=== PATIENT | male | born 1940 | race Caucasian/White ===

== ENCOUNTER 2017-12-30 10:35 | Observation (INO) | payer MEDICARE ==
[2017-12-30] VITALS (11 sets, daily range): BP systolic 137–235; BP diastolic 65–102; PULSE 61–70; RESP 16–20; TEMP 97–97.7; O2SAT 95–100
[~2017-12-30] VITALS: Ht 175.3 cm; Wt 70.7 kg
[2017-12-30] MEDS ORDERED: ASPI1TAB57 PO (10:49)
[2017-12-30] MEDS ORDERED: LIVA2TAB PO (10:49)
[2017-12-30] MEDS ORDERED: MULT-65 PO (10:49)
[2017-12-30] MEDS ORDERED: GLIP5TAB8 PO (10:49)
[2017-12-30] MEDS ORDERED: FIBE625T10 PO (10:49)
[2017-12-30] MEDS ORDERED: MIRA3350 PO (10:49)
[2017-12-30] MEDS ORDERED: FISHCAP4 PO (10:49)
[2017-12-30] MEDS ORDERED: PLAV75TA29 PO (10:49)
[2017-12-30] MEDS ORDERED: QUIN5TAB6 PO (10:49)
--- NOTE | 2017-12-30 10:50 | PD ---
HPI Chief Complaint: Syncope/Near-Syncope Time Seen by Provider: 10:38 Travel History International Travel<30 days: No Contact w/Intl Traveler<30days: No Traveled to known affect area: No History of Present Illness HPI 77-year-old male presents after having a near syncopal event today. He states he got lightheaded and felt tingly all over like he was going to pass out but did not lose consciousness. He denies any chest pain, shortness of breath or other concurrent complaints. He states that he is visiting from [place]. He denies prior history of this. He states his last heart workup was about a year ago. He denies specific modifying factors. He presents by ambulance. PFS Past Medical History Hx Anticoagulant Therapy: Yes Cardiovascular Problems: Yes Diabetes: Yes Past Surgical History Narrative Surgical Cardiac stent, carotid endarterectomy Social History Alcohol Use: No Tobacco Use: No Substance Use: No Allergies-Medications (Allergen,Severity, Reaction): Coded Allergies: No Known Allergies (Unverified , 12/30/17) Reported Meds & Prescriptions Reported Meds & Active Scripts Active Reported Fiber Tabs (Calcium Polycarbophil) 625 Mg Tab 625 Mg PO PRN Miralax Powder (Polyethylene Glycol 3350 Powder) 17 Gm Powd 17 Gm PO WEEKLY Mix and dissolve one measuring cap-ful (17 grams) in water or juice. Multi-Vitamin Daily (Multiple Vitamin) 1 Tab Tab 1 Tab PO DAILY Fish Oil + D3 (Fish Oil-Cholecalciferol) 1,200-1,000 Mg-Unit Cap 1 Cap PO DAILY Aspirin 81 (Aspirin) 81 Mg Tabdr 81 Mg PO DAILY Livalo (Pitavastatin) 2 Mg Tab 2 Mg PO DAILY Quinapril (Quinapril HCl) 5 Mg Tab 10 Mg PO DAILY Plavix (Clopidogrel Bisulfate) 75 Mg Tab 75 Mg PO DAILY Glipizide 5 Mg Tab 5 Mg PO DAILY Take 30 minutes before a meal Review of Systems Except as stated in HPI: all other systems reviewed are Neg Physical Exam Narrative GENERAL: 77-year-old male in no apparent distress SKIN: Focused skin assessment warm/dry. HEAD: Atraumatic. Normocephalic. EYES: Pupils equal and round. No scleral icterus. No injection or drainage. ENT: No nasal bleeding or discharge. Mucous membranes pink and moist. NECK: Trachea midline. No JVD. CARDIOVASCULAR: Irregular rhythm with normal rate. No murmur appreciated. RESPIRATORY: No accessory muscle use. Clear to auscultation. Breath sounds equal bilaterally. GASTROINTESTINAL: Abdomen soft, non-tender, nondistended. Hepatic and splenic margins not palpable. MUSCULOSKELETAL: No obvious deformities. No clubbing. No cyanosis. No edema. NEUROLOGICAL: Awake and alert. No obvious cranial nerve deficits. Motor grossly within normal limits. Normal speech. PSYCHIATRIC: Appropriate mood and affect; insight and judgment normal. Data Data Last Documented VS Vital Signs Date Time Temp Pulse Resp B/P (MAP) Pulse Ox O2 Delivery O2 Flow Rate FiO2 12/30/17 12:08 64 16 200/92 (128) 100 Room Air 12/30/17 10:41 97.6 Orders Orders Electrocardiogram (12/30/17 10:46) B-Type Natriuretic Peptide (12/30/17 10:46) Ckmb (Isoenzyme) Profile (12/30/17 10:46) Complete Blood Count With Diff (12/30/17 10:46) Comprehensive Metabolic Panel (12/30/17 10:46) Magnesium (Mg) (12/30/17 10:46) Prothrombin Time / Inr (Pt) (12/30/17 10:46) Act Partial Throm Time (Ptt) (12/30/17 10:46) Troponin I (12/30/17 10:46) Chest, Single Ap (12/30/17 10:46) Ecg Monitoring (12/30/17 10:46) Bilateral Bp Monitoring (12/30/17 10:46) Iv Access Insert/Monitor (12/30/17 10:46) Oximetry (12/30/17 10:46) Sodium Chloride 0.9% Flush (Ns Flush) (12/30/17 11:00) CKMB (12/30/17 10:50) CKMB% (12/30/17 10:50) Admit Order (Ed Use Only) (12/30/17 12:24) Labs Laboratory Tests Test 12/30/17 10:46 12/30/17 10:50 B-Type Natriuretic Peptide 97 PG/ML White Blood Count 3.6 TH/MM3 Red Blood Count 4.08 MIL/MM3 Hemoglobin 13.9 GM/DL Hematocrit 41.7 % Mean Corpuscular Volume 102.3 FL Mean Corpuscular Hemoglobin 34.1 PG Mean Corpuscular Hemoglobin Concent 33.4 % Red Cell Distribution Width 12.6 % Platelet Count 148 TH/MM3 Mean Platelet Volume 9.8 FL Neutrophils (%) (Auto) 70.5 % Lymphocytes (%) (Auto) 16.9 % Monocytes (%) (Auto) 10.1 % Eosinophils (%) (Auto) 1.7 % Basophils (%) (Auto) 0.8 % Neutrophils # (Auto) 2.5 TH/MM3 Lymphocytes # (Auto) 0.6 TH/MM3 Monocytes # (Auto) 0.4 TH/MM3 Eosinophils # (Auto) 0.1 TH/MM3 Basophils # (Auto) 0.0 TH/MM3 CBC Comment DIFF FINAL Differential Comment Prothrombin Time 11.0 SEC Prothromb Time International Ratio 1.1 RATIO Activated Partial Thromboplast Time 24.4 SEC Blood Urea Nitrogen 35 MG/DL Creatinine 1.20 MG/DL Random Glucose 161 MG/DL Total Protein 7.6 GM/DL Albumin 4.1 GM/DL Calcium Level 9.2 MG/DL Magnesium Level 2.0 MG/DL Alkaline Phosphatase 60 U/L Aspartate Amino Transf (AST/SGOT) 28 U/L Alanine Aminotransferase (ALT/SGPT) 32 U/L Total Bilirubin 0.6 MG/DL Sodium Level 139 MEQ/L Potassium Level 4.6 MEQ/L Chloride Level 106 MEQ/L Carbon Dioxide Level 21.5 MEQ/L Anion Gap 12 MEQ/L Estimat Glomerular Filtration Rate 58 ML/MIN Total Creatine Kinase 316 U/L Creatine Kinase MB 7.6 NG/ML Creatine Kinase MB % 2.4 % Troponin I LESS THAN 0.02 NG/ML MDM Medical Decision Making Medical Screen Exam Complete: Yes Emergency Medical Condition: Yes Medical Record Reviewed: Yes (Past history confirmed) Interpretation(s) CBC & BMP Diagram 12/30/17 10:50 Total Protein 7.6, Albumin 4.1, Calcium Level 9.2, Magnesium Level 2.0, Alkaline Phosphatase 60, Aspartate Amino Transf (AST/SGOT) 28, Alanine Aminotransferase (ALT/SGPT) 32, Total Bilirubin 0.6 Differential Diagnosis SVT, sinus bradycardia with PACs, A. fib, IA, anemia, renal failure Narrative Course Will check blood work, EKG, chest x-ray and reevaluate labs without emergent findings will discuss ekg with cardiology and admit Physician Communication Physician Communication dr overton agrees to observation at [facility] pantoja agrees to admit Diagnosis Primary Impression: Near syncope Admitting Information Admitting Physician Requests: Observation Lisa Bond MD Dec 30, 2017 10:50
[2017-12-30] MEDS ORDERED: SODIUM CHLORIDE 0.9% FLUSH 10 ML FLUSH IVF PRN (11:00)
[2017-12-30 11:02] LABS: AUTOMATED NEUTROPHIL # 2.5 TH/MM3 (1.8-7.7); BASOPHIL % 0.8 % (0.0-2.0); EOSINOPHIL # 0.1 TH/MM3 (0-0.4); EOSINOPHIL % 1.7 % (0.0-4.0); HEMATOCRIT 41.7 % (39.0-51.0); HEMOGLOBIN 13.9 GM/DL (13.0-17.0); LYMPH % 16.9 % (9.0-44.0); LYMPHOCYTE # 0.6 TH/MM3 (1.0-4.8); MEAN CELL VOLUME 102.3 FL (80.0-100.0); MEAN CORPUSCULAR HEMOGLOBIN 34.1 PG (27.0-34.0); MEAN CORPUSCULAR HGB CONC 33.4 % (32.0-36.0); MEAN PLATELET VOLUME 9.8 FL (7.0-11.0); MONO % 10.1 % (0.0-8.0); MONOCYTE # 0.4 TH/MM3 (0-0.9); NEUT % 70.5 % (16.0-70.0); PLATELET COUNT 148 TH/MM3 (150-450); RED BLOOD COUNT 4.08 MIL/MM3 (4.50-5.90); RED CELL DISTRIBUTION WIDTH 12.6 % (11.6-17.2); WHITE BLOOD COUNT 3.6 TH/MM3 (4.0-11.0)
[2017-12-30 11:11] LABS: CHLORIDE 106 MEQ/L (98-107); SODIUM (NA) 139 MEQ/L (136-145)
[2017-12-30 11:14] LABS: CALCIUM 9.2 MG/DL (8.5-10.1)
[2017-12-30 11:15] LABS: ALBUMIN 4.1 GM/DL (3.4-5.0); BICARBONATE 21.5 MEQ/L (21.0-32.0); BLOOD UREA NITROGEN 35 MG/DL (7-18); GLUCOSE,RANDOM 161 MG/DL (74-106)
[2017-12-30 11:18] LABS: ALT (GPT) 32 U/L (12-78); AST (GOT) 28 U/L (15-37); GLOMERULAR FILTRATION RATE 58 ML/MIN (>89)
[2017-12-30 11:19] LABS: TOTAL BILIRUBIN ADULT 0.6 MG/DL (0.2-1.0); TOTAL PROTEIN 7.6 GM/DL (6.4-8.2)
[2017-12-30 11:21] LABS: ALKALINE PHOSPHATASE 60 U/L (45-117)
[2017-12-30 11:23] LABS: TROPONIN I LESS THAN 0.02 NG/ML (0.02-0.05)
[2017-12-30 11:49] LABS: INTERNATIONAL NORMALIZED RATIO 1.1 RATIO
--- NOTE | 2017-12-30 11:55 | RADRPT ---
EXAM DATE: 12/30/2017 11:23 AM EDT AGE/SEX: 77 years / Male INDICATIONS: Palpitations, dizzy, syncope CLINICAL DATA: This is the patient's initial encounter. Patient reports that signs and symptoms have been present for 1 day and indicates a pain score of 0/10. MEDICAL/SURGICAL HISTORY: None. None. COMPARISON: No prior exams available for comparison. FINDINGS: Portable AP view of the chest demonstrates a normal-sized cardiac silhouette. No effusion, consolidat ion, or pneumothorax is identified. The bones and soft tissues demonstrate no acute finding. There is mild atelectasis at the lung bases. CONCLUSION: Mild atelectasis at the lung bases. Otherwise, no acute cardiopulmonary abnormality is identified. Electronically signed by: Deon Ayala MD 12/30/2017 11:54 AM EDT
[2017-12-30] MEDS ORDERED: ENALAPRILAT 1.25 MG/ML VIAL IV PRN (13:00)
[2017-12-30] MEDS ORDERED: ACETAMINOPHEN 325 MG TAB PO PRN (13:00)
[2017-12-30] MEDS ORDERED: SENNOSIDES 8.6 MG TAB PO PRN (13:00)
[2017-12-30] MEDS ORDERED: NALOXONE HCL 0.4 MG/ML AMP IV PUSH PRN (13:00)
[2017-12-30] MEDS ORDERED: SODIUM CHLORIDE 0.9% FLUSH 10 ML FLUSH IV FLUSH PRN (13:00)
--- NOTE | 2017-12-30 13:25 | HHI.HP ---
[facility] Service [facility] Primary Care Physician Non-Staff Admission Diagnosis near syncope, bradycardia Diagnoses: Chief Complaint: Almost passed out Travel History International Travel<30 Days: No Contact w/Intl Traveler <30 Da: No Traveled to Known Affected Are: No History of Present Illness This patient is a 77-year-old gentleman with a history of coronary artery disease and carotid artery disease as well as diabetes who is come to the hospital complaining of a near syncopal event occurring without exertion. He is on vacation with his family and felt lightheaded and dizzy. He managed to lay down but noticed the symptoms do not resolve completely. He denies chest pain or shortness of breath or chest tightness. He was brought to the emergency room by his family and found to have elevated blood pressure. Blood pressure was 200/92. He says his blood pressure has been labile recently and his quinapril had been decreased. He gets hypotensive episodes every so often at least 3 times a week. He has never had a stroke but notes that his right arm has some lateral digit numbness that has been intermittent. He has carotid endarterectomy on both sides, and this was done last year. He normally is very fit and active. No recent illness and no new [id number] medications for him. He takes Plavix and aspirin. He does have a history of cardiac stenting. He denied any chest pain again. Patient been admitted to the hospital for further evaluation treatment of the above complaint Review of Systems Constitutional: COMPLAINS OF: Dizziness, DENIES: Diaphoretic episodes, Fatigue , Fever, Weight gain, Weight loss, Chills, Change in appetite, Night Sweats Endocrine: DENIES: Heat/cold intolerance, Polydipsia, Polyuria, Polyphagia Eyes: DENIES: Blurred vision, Eye pain Ears, nose, mouth, throat: DENIES: Tinnitus, Hearing loss, Vertigo, Nasal discharge, Oral lesions, Throat pain, Hoarseness, Ear Pain, Running Nose, Epistaxis, Sinus Pain, Toothache, Odynophagia Respiratory: DENIES: Apneas, Cough, Snoring, Wheezing, Hemoptysis, Sputum production, Shortness of breath Cardiovascular: COMPLAINS OF: Syncope (presyncope), DENIES: Chest pain, Palpitations, Dyspnea on Exertion, PND, Lower Extremity Edema, Orthopnea, Claudication Gastrointestinal: DENIES: Abdominal pain, Black stools, Bloody stools, Constipation, Diarrhea, Nausea, Vomiting, Difficulty Swallowing, Anorexia Genitourinary: DENIES: Sexual dysfunction, Urinary frequency, Urinary incontinence, Urgency, Hematuria, Dysuria, Nocturia, Penile Discharge, Testicular Pain, Testicular Swelling Musculoskeletal: DENIES: Joint pain, Muscle aches, Stiffness, Joint Swelling, Back pain, Neck pain Integumentary: DENIES: Abnormal pigmentation, Nail changes, Pruritus, Rash Hematologic/lymphatic: DENIES: Bruising, Lymphadenopathy Immunologic/allergic: DENIES: Eczema, Urticaria Neurologic: DENIES: Abnormal gait, Headache, Localized weakness, Paresthesias, Seizures, Speech Problems, Tremor, Poor Balance Psychiatric: DENIES: Anxiety, Confusion, Mood changes, Depression, Hallucinations, Agitation, Suicidal Ideation, Homicidal Ideation, Delusions Except as stated in HPI: all other systems reviewed are Neg numbness right lateral fingers Past Family Social History Past Medical History Hypertension, recently labile Diabetes Hyperlipidemia Carotid stenosis status post treatment Coronary artery disease status post cardiac stenting Past Surgical History Small bowel obstruction with surgical treatment of intestinal bands Carotid endarterectomy Cardiac stent Reported Medications Reviewed in the EMR, nothing new but a quinapril was recently adjusted due to hypotension Allergies: Coded Allergies: No Known Allergies (Unverified , 12/30/17) Active Ordered Medications Reviewed in the EMR Family History Family history of hypertension coronary disease Social History No current tobacco or alcohol dependency (remote tobacco over 30 years ago) Independent with ADLs lives with his family Physical Exam Vital Signs Vital Signs Date Time Temp Pulse Resp B/P (MAP) Pulse Ox O2 Delivery O2 Flow Rate FiO2 12/30/17 12:47 68 18 195/87 (123) 96 Room Air 12/30/17 12:08 64 16 200/92 (128) 100 Room Air 12/30/17 11:07 61 18 197/91 (126) 96 Room Air 202/89 (126) 12/30/17 10:59 98 Room Air 12/30/17 10:50 98 Room Air 12/30/17 10:41 97.6 64 18 185/78 (113) 98 Physical Exam GENERAL: This is a thin well-developed patient, in no apparent distress. SKIN: No rashes, ecchymoses or lesions. Cool and dry. HEAD: Atraumatic. Normocephalic. No temporal or scalp tenderness. EYES: Pupils equal round and reactive. Extraocular motions intact. No scleral icterus. No injection or drainage. ENT: Nose without bleeding, purulent drainage or septal hematoma. Throat without erythema, tonsillar hypertrophy or exudate. Uvula midline. Airway patent. NECK: Trachea midline. No JVD or lymphadenopathy. Supple, nontender, no meningeal signs. CARDIOVASCULAR: irregular bradycardia without murmurs, gallops, or rubs. RESPIRATORY: Clear to auscultation. Breath sounds equal bilaterally. No wheezes , rales, or rhonchi. GASTROINTESTINAL: Abdomen soft, non-tender, nondistended. No hepato-splenomegaly , or palpable masses. No guarding. MUSCULOSKELETAL: Extremities without clubbing, cyanosis, or edema. No joint tenderness, effusion, or edema noted. No calf tenderness. Negative Homans sign bilaterally. NEUROLOGICAL: Awake and alert. Cranial nerves II through XII intact. Motor and sensory grossly within normal limits. Five out of 5 muscle strength in all muscle groups. Normal speech. Laboratory Laboratory Tests Test 12/30/17 10:46 12/30/17 10:50 B-Type Natriuretic Peptide 97 White Blood Count 3.6 Red Blood Count 4.08 Hemoglobin 13.9 Hematocrit 41.7 Mean Corpuscular Volume 102.3 Mean Corpuscular Hemoglobin 34.1 Mean Corpuscular Hemoglobin Concent 33.4 Red Cell Distribution Width 12.6 Platelet Count 148 Mean Platelet Volume 9.8 Neutrophils (%) (Auto) 70.5 Lymphocytes (%) (Auto) 16.9 Monocytes (%) (Auto) 10.1 Eosinophils (%) (Auto) 1.7 Basophils (%) (Auto) 0.8 Neutrophils # (Auto) 2.5 Lymphocytes # (Auto) 0.6 Monocytes # (Auto) 0.4 Eosinophils # (Auto) 0.1 Basophils # (Auto) 0.0 CBC Comment DIFF FINAL Differential Comment Prothrombin Time 11.0 Prothromb Time International Ratio 1.1 Activated Partial Thromboplast Time 24.4 Blood Urea Nitrogen 35 Creatinine 1.20 Random Glucose 161 Total Protein 7.6 Albumin 4.1 Calcium Level 9.2 Magnesium Level 2.0 Alkaline Phosphatase 60 Aspartate Amino Transf (AST/SGOT) 28 Alanine Aminotransferase (ALT/SGPT) 32 Total Bilirubin 0.6 Sodium Level 139 Potassium Level 4.6 Chloride Level 106 Carbon Dioxide Level 21.5 Anion Gap 12 Estimat Glomerular Filtration Rate 58 Total Creatine Kinase 316 Creatine Kinase MB 7.6 Creatine Kinase MB % 2.4 Troponin I LESS THAN 0.02 Result Diagram: 12/30/17 1050 12/30/17 1050 Imaging Last Impressions Chest X-Ray 12/30/17 1046 Signed Impressions: CONCLUSION: Mild atelectasis at the lung bases. Otherwise, no acute cardiopulmonary abnorma lity is identified. Caprini VTE Risk Assessment Caprini VTE Risk Assessment: Mod/High Risk (score >= 2) Caprini Risk Assessment Model Point Value = 1 Point Value = 2 Point Value = 3 Point Value = 5 Age 41-60 Minor surgery BMI > 25 kg/m2 Swollen legs Varicose veins or History of unexplained or recurrent spontaneous Oral contraceptives or hormone replacement Sepsis (< 1 month) Serious lung disease, including pneumonia (< 1 month) Abnormal pulmonary function Acute myocardial infarction Congestive heart failure (< 1 month) History of inflammatory bowel disease Medical patient at bed rest Age 61-74 Arthroscopic surgery Major open surgery (> 45 min) Laparoscopic surgery (> 45 min) Malignancy Confined to bed (> 72 hours) Immobilizing plaster cast Central venous access Age >= 75 History of VTE Family history of VTE Factor V Leiden Prothrombin [id number] Lupus anticoagulant Anticardiolipin antibodies Elevated serum homocysteine Heparin-induced thrombocytopenia Other congenital or acquired thrombophilia Stroke (< 1 month) Elective arthroplasty Hip, pelvis, or leg fracture Acute spinal cord injury (< 1 month) Prophylaxis Regimen Total Risk Factor Score Risk Level Prophylaxis Regimen 0-1 Low Early ambulation 2 Moderate Order ONE of the following: *Sequential Compression Device (SCD) *Heparin 5000 units SQ BID 3-4 Higher Order ONE of the following medications: *Heparin 5000 units SQ TID *Enoxaparin/Lovenox 40 mg SQ daily (WT < 150 kg, CrCl > 30 mL/min) *Enoxaparin/Lovenox 30 mg SQ daily (WT < 150 kg, CrCl > 10-29 mL/min) *Enoxaparin/Lovenox 30 mg SQ BID (WT < 150 kg, CrCl > 30 mL/min) AND/OR *Sequential Compression Device (SCD) 5 or more Highest Order ONE of the following medications: *Heparin 5000 units SQ TID (Preferred with Epidurals) *Enoxaparin/Lovenox 40 mg SQ daily (WT < 150 kg, CrCl > 30 mL/min) *Enoxaparin/Lovenox 30 mg SQ daily (WT < 150 kg, CrCl > 10-29 mL/min) *Enoxaparin/Lovenox 30 mg SQ BID (WT < 150 kg, CrCl > 30 mL/min) AND *Sequential Compression Device (SCD) Assessment and Plan Problem List: (1) Near syncope ICD Code: R55 - Syncope and collapse Status: Acute Plan: Etiology unclear rule out dehydration, stroke stroke, GA, arrhythmia, hypoglycemia, workup in progress CT head pending, IV Hydration, EKG not consistent with acute ischemic event, follow-up glucose Continue telemetry (2) Uncontrolled hypertension ICD Code: I10 - Essential (primary) hypertension Plan: Blood pressure has been labile recently and patient's reporting low blood pressures with adjustment in his home quinapril to 5 mg daily. Will follow with medication as needed and follow-up echocardiogram (3) CAD (coronary artery disease) ICD Code: I25.10 - Atherosclerotic heart disease of [place] coronary artery without angina pectoris Plan: Currently stable, patient on JONA inhibitor but not on a beta-rey Continue statin Aspirin/Plavix Follow-up cardiology for any further recommendations (primary cheesemaker helper is in [place]) (4) Numbness of right hand ICD Code: R20.0 - Anesthesia of skin Plan: Follow-up CT head and neck, rule out stroke versus radiculopathy (5) Arrhythmia ICD Code: I49.9 - Cardiac arrhythmia, unspecified Plan: Continue telemetry Follow-up echocardiogram Follow-up cardiology Electrolytes are stable EKG concerning for atrial fibrillation versus a flutter which may be symptomatic given the patient's chief complaint (6) DM2 (diabetes mellitus, type 2) ICD Code: E11.9 - Type 2 diabetes mellitus without complications Plan: Continue home meds, monitor glucose and ADA diet (7) Rhabdomyolysis ICD Code: M62.82 - Rhabdomyolysis Plan: Follow with his CPK hydrate follow [employer] Gregoria Lombardi MD Dec 30, 2017 13:25
[2017-12-30] MEDS: SODIUM CHLOR 0.9% 1000 ML INJ 1,000 ML IV SCH ×2 (13:57→23:00)
[2017-12-30] MEDS ORDERED: amLODIPine BESYLATE 5 MG TAB PO ONE (14:00)
--- NOTE | 2017-12-30 15:27 | RADRPT ---
EXAM DATE: 12/30/2017 3:05 PM EDT AGE/SEX: 77 years / Male INDICATIONS: Near syncopal episode. CLINICAL DATA: This is the patient's initial encounter. Patient reports that signs and symptoms have been present for 1 day and indicates a pain score of 0/10. MEDICAL/SURGICAL HISTORY: Diabetes. Hypertension. Myocardial infarction. Coronary artery stent. Carotid endarterectomy. Colon resection. RADIATION DOSE: 66.27 CTDI (mGy) COMPARISON: No prior exams available for comparison. TECHNIQUE: CT of the head without contrast. Using automated exposure control and adjustment of the mA and/or kV according to patient size, radiation dose was kept as low as reasonably achievable to ob tain optimal diagnostic quality images. FINDINGS: Cerebrum: The ventricles are normal for age. No evidence of midline shift, mass lesion, hemorrhage or acute infarction. No extraaxial fluid collections are seen. Posterior Fossa: The cerebellum and brainstem are intact. The 4th ventricle is midline. The cerebe llopontine angle is unremarkable. Extracranial: The visualized portion of the orbits is intact. Skull: The calvaria is intact. No evidence of skull fracture. CONCLUSION: 1. No acute intracranial abnormality. Electronically signed by: Layton Gotti MD 12/30/2017 3:26 PM EDT
--- NOTE | 2017-12-30 15:29 | RADRPT ---
EXAM DATE: 12/30/2017 3:07 PM EDT AGE/SEX: 77 years / Male INDICATIONS: Near syncopal episode. Intermittent radiculopathy to right hand x 4 months. CLINICAL DATA: This is the patient's initial encounter. Patient reports that signs and symptoms have been present for 4 - 6 months and indicates a pain score of 0/10. MEDICAL/SURGICAL HISTORY: Diabetes. Hypertension. Carotid endarterectomy. Coronary artery ira nt. Colon resection. RADIATION DOSE: 25.93 CTDI (mGy) COMPARISON: No prior exams available for comparison. TECHNIQUE: Contiguous axial images were obtained using helical multirow detector technique. The vol umetric data was post-processed with multiplanar reconstruction in oblique axial, sagittal, and coron al planes. Using automated exposure control and adjustment of the mA and/or kV according to patient s ize, radiation dose was kept as low as reasonably achievable to obtain optimal diagnostic quality simon ges. FINDINGS: No acute fracture. Advanced degenerative change at C5-6 with degenerative retrolisthesis of C5 on C6. Severe left-sided foraminal stenosis at this level. CONCLUSION: 1. No acute fracture. Focally advanced degenerative change at C5-6 with retrolisthesis and severe le ft foraminal stenosis Electronically signed by: Layton Gotti MD 12/30/2017 3:28 PM EDT
[2017-12-30 15:34] LABS: TROPONIN I LESS THAN 0.02 NG/ML (0.02-0.05)
--- NOTE | 2017-12-30 17:02 | MB ---
cc: Robbin Hugo MD, Glenn H MD DATE: 12/30/2017 REASON FOR CONSULTATION: Near syncope. HISTORY OF PRESENT ILLNESS: The patient is a 77-year-old white male from [place], with a history of coronary artery disease, carotid disease, diabetes who was in his usual state of health up until the morning of admission when, while making breakfast, he began to feel progressively worsening lightheadedness to the point of near syncope. He went back to his bedroom where his took his blood pressure and found it to be 170 systolic. The patient also experienced nausea and diaphoresis and the episode lasted about 30 minutes. The patient never lost consciousness completely. He denies any recent angina, shortness of breath, pedal edema, palpitations, paroxysmal nocturnal dyspnea. He reports a nuclear stress test last year which was negative for ischemia. Since coming into the hospital he feels "normal". PAST MEDICAL HISTORY: 1. Hypertension. 2. Diabetes. 3. Hyperlipidemia. 4. Carotid disease with history of carotid endarterectomies bilaterally in 2016. 5. Coronary artery disease, status post myocardial infarction and coronary stenting 2003. PAST SURGICAL HISTORY: 1. Bilateral carotid endarterectomies. 2. Surgery for small-bowel obstruction. CARDIAC MEDICATIONS AT HOME: 1. Plavix 75 mg daily. 2. Quinapril 10 mg daily. 3. Livalo 2 mg daily. 4. Aspirin 81 mg daily. ALLERGIES: NO KNOWN DRUG ALLERGIES. FAMILY HISTORY: Noncontributory. SOCIAL HISTORY: The patient denies any history of alcohol or tobacco abuse. REVIEW OF SYSTEMS: As in history of present illness, otherwise negative or noncontributory. He also denies headache, abdominal pain, melena, dyspepsia, bright red blood per rectum, recent flu symptoms, diarrhea. PHYSICAL EXAMINATION: VITAL SIGNS: His blood pressure is 147/65 with a pulse of 69, respirations 20. GENERAL: He is a well-developed, well-nourished white male, in no acute distress. NECK: Jugular venous pressure is normal. Carotid pulses are 2+ bilaterally and without bruits. CHEST: Reveals clear lungs manuel. CARDIAC: He has a regular rhythm and rate without S3, S4 or murmur. ABDOMEN: He has a soft, nontender abdomen. Bowel sounds are present. There is no definite hepatosplenomegaly. EXTREMITIES: Reveals no clubbing, cyanosis or edema. CARDIOLOGY STUDIES: EKG on admission shows probable sinus bradycardia, cannot rule out wandering atrial pacemaker, right bundle branch block. A subsequent EKG shows normal sinus rhythm, right bundle branch block. LABORATORY DATA: Includes WBC 3.6, hemoglobin 13.9, platelets 148, potassium 4.6, BUN 35, creatinine 1.20. CK 316 with 2.4% MB fraction. Troponin less than 0.02. IMAGING STUDIES: Chest x-ray shows no acute disease. IMPRESSION: Near syncope in this 77-year-old white male with a history of carotid disease, coronary artery disease, diabetes, hypertension, hyperlipidemia. I suspect overall his near syncope was vasovagal mediated. There has been no definite evidence for significant arrhythmias so far. He remains in sinus rhythm on the monitor. The rhythm on the initial EKG is somewhat difficult to interpret. There is clearly P-wave activity, more discernible in the precordial leads. There is no evidence for acute coronary syndrome. He has had no recent angina symptoms. Cardiac enzymes are basically negative for myocardial infarction. He reports a negative nuclear stress test last year. RECOMMENDATIONS: Overnight observation; he can be discharged home tomorrow morning from a cardiac standpoint if he remains clinical and hemodynamically stable. Will follow up as needed. MD ENRIQUE Stuart/ , 04:00 PM , 05:00 PM ELLA
[2017-12-30 18:10] LABS: BILIRUBIN, URINE NEG (NEG); BLOOD, URINE NEG (NEG); GLUCOSE,URINE NEG (NEG); KETONE, URINE TRACE mg/dL (NEG); NITRITE,URINE NEG (NEG); URINE COLOR YELLOW (YELLW/STRAW); URINE LEUKOCYTE ESTERASE NEG (NEG)
[2017-12-30 19:18] LABS: TROPONIN I LESS THAN 0.02 NG/ML (0.02-0.05)
[2017-12-30] MEDS: SODIUM CHLORIDE 0.9% FLUSH 10 ML FLUSH IV FLUSH SCH (20:42)
[2017-12-31] VITALS: BP 176/84; PULSE 60; RESP 20; TEMP 96.6; O2SAT 96
[2017-12-31 04:00] VITALS: BP 160/74; PULSE 69; RESP 20; TEMP 96.3; O2SAT 92
[2017-12-31 07:39] LABS: AUTOMATED NEUTROPHIL # 3.8 TH/MM3 (1.8-7.7); BASOPHIL % 0.5 % (0.0-2.0); EOSINOPHIL # 0.1 TH/MM3 (0-0.4); EOSINOPHIL % 1.2 % (0.0-4.0); HEMATOCRIT 38.8 % (39.0-51.0); LYMPH % 14.5 % (9.0-44.0); LYMPHOCYTE # 0.8 TH/MM3 (1.0-4.8); MEAN CELL VOLUME 101.6 FL (80.0-100.0); MEAN CORPUSCULAR HEMOGLOBIN 33.9 PG (27.0-34.0); MEAN CORPUSCULAR HGB CONC 33.3 % (32.0-36.0); MEAN PLATELET VOLUME 10.4 FL (7.0-11.0); MONO % 10.7 % (0.0-8.0); MONOCYTE # 0.6 TH/MM3 (0-0.9); NEUT % 73.1 % (16.0-70.0); PLATELET COUNT 143 TH/MM3 (150-450); RED BLOOD COUNT 3.82 MIL/MM3 (4.50-5.90); RED CELL DISTRIBUTION WIDTH 12.5 % (11.6-17.2); WHITE BLOOD COUNT 5.3 TH/MM3 (4.0-11.0)
[2017-12-31] MEDS: SODIUM CHLORIDE 0.9% FLUSH 10 ML FLUSH IV FLUSH SCH (07:46)
[2017-12-31] MEDS: SODIUM CHLOR 0.9% 1000 ML INJ 1,000 ML IV SCH (07:48)
[2017-12-31 07:51] LABS: BICARBONATE 23.8 MEQ/L (21.0-32.0); CALCIUM 8.6 MG/DL (8.5-10.1)
[2017-12-31 08:00] VITALS: BP 153/72; PULSE 65; RESP 16; TEMP 97; O2SAT 95
[2017-12-31] MEDS ORDERED: MULTIVITAMIN TAB PO SCH (09:00)
[2017-12-31] MEDS ORDERED: ASPIRIN EC 81 MG TABEC PO SCH (09:00)
[2017-12-31] MEDS ORDERED: LISINOPRIL 10 MG TAB PO SCH (09:00)
[2017-12-31] MEDS ORDERED: glipiZIDE 5 MG TAB PO SCH (09:00)
[2017-12-31] MEDS ORDERED: PRAVASTATIN SOD 40 MG TAB PO SCH (09:00)
[2017-12-31] MEDS ORDERED: CLOPIDOGREL 75 MG TAB PO SCH (09:00)
--- NOTE | 2017-12-31 09:40 | ECHRPT ---
Indication: HYPERTENSIVE HEART DISEASE CONCLUSIONS Mildly dilated left ventricle. Wall thickness is normal. The left ventricular systolic function is low normal with an estimated ejection fraction in the rang e of 50- 55%. Mitral annular calcification is present. Trace mitral valve regurgitation. Aortic valve sclerosis is present. BP: / HR: Rhythm: MEASUREMENTS (Male / Female) Normal Values Technical Quality: 2D ECHO LV Diastolic Diameter PLAX 5.3 cm 4.2 - 5.9 / 3.9 - 5.3 cm LV Systolic Diameter PLAX 4.4 cm IVS Diastolic Thickness 1.1 cm 0.6 - 1.0 / 0.6 - 0.9 cm LVPW Diastolic Thickness 0.8 cm 0.6 - 1.0 / 0.6 - 0.9 cm LV Relative Wall Thickness 0.4 RV Internal Dim ED PLAX 1.8 cm M-MODE Aortic Root Diameter MM 3.5 cm AV Cusp Separation MM 2.3 cm DOPPLER Mitral E Point Velocity 64.7 cm/s Mitral A Point Velocity 59.2 cm/s Mitral E to A Ratio 1.1 TR Peak Velocity 184.0 cm/s TR Peak Gradient 13.5 mmHg Right Atrial Pressure 10.0 mmHg Pulmonary Artery Systolic Pressu 23.5 mmHg Right Ventricular Systolic Press 23.5 mmHg FINDINGS LEFT VENTRICLE Mildly dilated left ventricle. Wall thickness is normal. The left ventricular systolic function is low normal with an estimated ejection fraction in the rang e of 50- 55%. RIGHT VENTRICLE Normal right ventricular size and systolic function. LEFT ATRIUM The left atrial size is normal. RIGHT ATRIUM The right atrial size is normal. ATRIAL SEPTUM Normal atrial septal thickness without atrial level shunting by limited color doppler interrogation. AORTA The aortic root and proximal ascending aorta are normal in size on limited imaging. MITRAL VALVE Mitral annular calcification is present. Trace mitral valve regurgitation. AORTIC VALVE Aortic valve sclerosis is present. TRICUSPID VALVE Structurally normal tricuspid valve. No tricuspid valve stenosis or regurgitation. PULMONARY VALVE No pulmonary valve regurgitation or stenosis. VESSELS The inferior vena cava is normal in size. PERICARDIUM No pericardial effusion. Alex Joseph MD, FACC (Electronically Signed) Final Date:31 December 2017 09:38
--- NOTE | 2017-12-31 09:47 | HHI.DCPOC ---
Discharge Care Plan Diagnosis: (1) Numbness of right hand (2) DM2 (diabetes mellitus, type 2) (3) Uncontrolled hypertension (4) Rhabdomyolysis Goals to Promote Your Health * To prevent worsening of your condition and complications * To maintain your health at the optimal level Directions to Meet Your Goals Take your medications as prescribed Follow your dietary instruction Follow activity as directed Keep your appointments as scheduled Take your immunizations and boosters as scheduled If your symptoms worsen call your PCP, if no PCP go to Urgent Care Center or Emergency Room Smoking is Dangerous to Your Health. Avoid second hand smoke Call the 24-hour hour crisis hotline for domestic abuse at Gregoria Lombardi MD Dec 31, 2017 09:47
--- NOTE | 2017-12-31 09:50 | HHI.DS ---
Discharge Summary Admission Date Dec 30, 2017 at 12:25 Discharge Date: Dec 31, 2017 Admitting Diagnosis near syncope, bradycardia (1) Near syncope ICD Code: R55 - Syncope and collapse Status: Acute (2) Uncontrolled hypertension ICD Code: I10 - Essential (primary) hypertension (3) CAD (coronary artery disease) ICD Code: I25.10 - Atherosclerotic heart disease of [place] coronary artery without angina pectoris (4) Numbness of right hand ICD Code: R20.0 - Anesthesia of skin (5) Arrhythmia ICD Code: I49.9 - Cardiac arrhythmia, unspecified (6) DM2 (diabetes mellitus, type 2) ICD Code: E11.9 - Type 2 diabetes mellitus without complications (7) Rhabdomyolysis ICD Code: M62.82 - Rhabdomyolysis Procedures None Brief History - From Admission This patient is a 77-year-old gentleman with a history of coronary artery disease and carotid artery disease as well as diabetes who is come to the hospital complaining of a near syncopal event occurring without exertion. He is on vacation with his family and felt lightheaded and dizzy. He managed to lay down but noticed the symptoms do not resolve completely. He denies chest pain or shortness of breath or chest tightness. He was brought to the emergency room by his family and found to have elevated blood pressure. Blood pressure was 200/92. He says his blood pressure has been labile recently and his quinapril had been decreased. He gets hypotensive episodes every so often at least 3 times a week. He has never had a stroke but notes that his right arm has some lateral digit numbness that has been intermittent. He has carotid endarterectomy on both sides, and this was done last year. He normally is very fit and active. No recent illness and no new [id number] medications for him. He takes Plavix and aspirin. He does have a history of cardiac stenting. He denied any chest pain again. Patient been admitted to the hospital for further evaluation treatment of the above complaint CBC/BMP: 12/31/17 0602 12/31/17 0602 Significant Findings Laboratory Tests Test 12/30/17 10:46 12/30/17 10:50 12/30/17 14:44 12/30/17 17:45 White Blood Count 3.6 TH/MM3 (4.0-11.0) Red Blood Count 4.08 MIL/MM3 (4.50-5.90) Mean Corpuscular Volume 102.3 FL (80.0-100.0) Mean Corpuscular Hemoglobin 34.1 PG (27.0-34.0) Platelet Count 148 TH/MM3 (150-450) Neutrophils (%) (Auto) 70.5 % (16.0-70.0) Monocytes (%) (Auto) 10.1 % (0.0-8.0) Lymphocytes # (Auto) 0.6 TH/MM3 (1.0-4.8) Blood Urea Nitrogen 35 MG/DL (7-18) Random Glucose 161 MG/DL (74-106) Estimat Glomerular Filtration Rate 58 ML/MIN (>89) Total Creatine Kinase 316 U/L (39-308) Creatine Kinase MB 7.6 NG/ML (0.5-3.6) Troponin I LESS THAN 0.02 NG/ML LESS THAN 0.02 NG/ML Urine Ketones TRACE mg/dL (NEG) Test 12/30/17 18:36 12/31/17 06:02 Troponin I LESS THAN 0.02 NG/ML Red Blood Count 3.82 MIL/MM3 (4.50-5.90) Hematocrit 38.8 % (39.0-51.0) Mean Corpuscular Volume 101.6 FL (80.0-100.0) Platelet Count 143 TH/MM3 (150-450) Neutrophils (%) (Auto) 73.1 % (16.0-70.0) Monocytes (%) (Auto) 10.7 % (0.0-8.0) Lymphocytes # (Auto) 0.8 TH/MM3 (1.0-4.8) Blood Urea Nitrogen 33 MG/DL (7-18) Random Glucose 115 MG/DL (74-106) Chloride Level 109 MEQ/L (98-107) Estimat Glomerular Filtration Rate 72 ML/MIN (>89) Imaging Last Impressions Chest X-Ray 12/30/17 1046 Signed Impressions: CONCLUSION: Mild atelectasis at the lung bases. Otherwise, no acute cardiopulmonary abnorma lity is identified. Head CT 12/30/17 0000 Signed Impressions: CONCLUSION: 1. No acute intracranial abnormality. Cervical Spine CT 12/30/17 0000 Signed Impressions: CONCLUSION: 1. No acute fracture. Focally advanced degenerative change at C5-6 with retrol isthesis and severe left foraminal stenosis PE at Discharge GENERAL: This is a well-nourished, well-developed patient, in no apparent distress. CARDIOVASCULAR: Regular rate and rhythm without murmurs, gallops, or rubs. RESPIRATORY: Clear to auscultation. Breath sounds equal bilaterally. No wheezes , rales, or rhonchi. GASTROINTESTINAL: Abdomen soft, non-tender, nondistended. Normal active bowel sounds MUSCULOSKELETAL: Extremities without clubbing, cyanosis, or edema. NEURO: Alert & Oriented x4 to person, place, time, situation. Moves all ext x4 Hospital Course Patient was seen and monitored on telemetry. His heart rhythm appeared to stabilize. Patient's blood pressure was somewhat erratic but improved to more stable numbers after hydration. Patient is instructed to follow-up with his primary care physician There is some evidence of cervical disc disease which may explain some of his numbness No evidence of stroke Pt Condition on Discharge: Good Discharge Disposition: Discharge Home Discharge Time: <= 30 minutes Discharge Instructions DIET: Follow Instructions for: Heart Healthy Diet, Diabetic Diet Activities you can perform: Regular-No Restrictions Continued Medications: Aspirin DR (Aspirin 81) 81 Mg Tabdr 81 MG PO DAILY, TAB 0 Refills Calcium Polycarbophil (Fiber Tabs) 625 Mg Tab 625 MG PO PRN for SUPPLEMENT, TAB Clopidogrel (Plavix) 75 Mg Tab 75 MG PO DAILY for Blood Clot Prevention, #30 TAB 0 Refills Fish Oil-Cholecalciferol (Fish Oil + D3) 1,200-1,000 Mg-Unit Cap 1 CAP PO DAILY for Nutritional Supplement, #30 CAP 0 Refills Glipizide (Glipizide) 5 Mg Tab 5 MG PO DAILY for Blood Sugar Management, #30 TAB 0 Refills Take 30 minutes before a meal Multiple Vitamin (Multi-Vitamin Daily) 1 Tab Tab 1 TAB PO DAILY for Nutritional Supplement, TAB 0 Refills Pitavastatin (Livalo) 2 Mg Tab 2 MG PO DAILY for Cholesterol Management, #30 TAB 0 Refills Polyethylene Glycol 3350 Powder (Miralax Powder) 17 Gm Powd 17 GM PO WEEKLY for Constipation, #1 CAN 0 Refills Mix and dissolve one measuring cap-ful (17 grams) in water or juice. Quinapril (Quinapril) 5 Mg Tab 10 MG PO DAILY, #60 TAB 0 Refills Gregoria Lombardi MD Dec 31, 2017 09:50
--- NOTE | 2017-12-31 13:46 | EKG ---
Date Performed: 12/30/2017 Time Performed: 14:38:42 PTAGE: 77 years EKG: Sinus rhythm RIGHT BUNDLE BRANCH BLOCK ABNORMAL ECG PREVIOUS TRACING : 12/30/2017 10.43 Since the previous tracing, no significant change noted DOCTOR: Juan Carlos Huerta Interpretating Date/Time 12/31/2017 13:43:54
--- NOTE | 2017-12-31 13:47 | EKG ---
Date Performed: 12/30/2017 Time Performed: 10:43:54 PTAGE: 77 years EKG: ATRIAL FIBRILLATION RIGHT BUNDLE BRANCH BLOCK ABNORMAL ECG NO PREVIOUS TRACING DOCTOR: Juan Carlos Huerta Interpretating Date/Time 12/31/2017 13:43:56
--- NOTE | 2017-12-31 13:47 | EKG ---
Date Performed: 12/30/2017 Time Performed: 18:32:41 PTAGE: 77 years EKG: SINUS BRADYCARDIA RIGHT BUNDLE BRANCH BLOCK ABNORMAL ECG PREVIOUS TRACING : 12/30/2017 14.38 Since the previous tracing, no significant change noted DOCTOR: Juan Carlos Huerta Interpretating Date/Time 12/31/2017 13:44:03
== END 2017-12-31 11:40 | disposition home or self-care (01) ==
LOC: PHED 10:35 → PHEDA 12:25 → PH3A 13:24
PROVIDERS: ADMIT Hospitalist; ATTEND Hospitalist
DX: R55 Syncope and collapse (principal); I10 Essential (primary) hypertension; I25.10 Atherosclerotic heart disease of native coronary artery without angina pectoris; I49.9 Cardiac arrhythmia, unspecified; R20.0 Anesthesia of skin; E11.9 Type 2 diabetes mellitus without complications; M62.82 Rhabdomyolysis; I25.2 Old myocardial infarction; Z95.5 Presence of coronary angioplasty implant and graft; R61 Generalized hyperhidrosis; R11.0 Nausea; E78.5 Hyperlipidemia, unspecified; Z79.02 Long term (current) use of antithrombotics/antiplatelets; Z79.82 Long term (current) use of aspirin; R94.31 Abnormal electrocardiogram [ECG] [EKG]
CPT/HCPCS: 70450; 71045; 72125; 80048; 80053; 80307; 81001; 82550; 82552; 82948; 83735; 83880; 84443; 84484; 85025; 85610; 85730; 93005; 93306; 96361; 96374; 99285; G0378; J7030